=== PATIENT | male | born 1955 | race Two or more races ===

== ENCOUNTER 2019-05-13 08:29 | Inpatient (IN) | payer OTHER ==
[~2019-05-13] VITALS: Ht 167.6 cm; Wt 81.6 kg
[2019-05-13] MEDS ORDERED: GLIPIZIDE XL5 MG PO (09:01)
[2019-06-01] MEDS ORDERED: ACIDOPHILUS X-1 EACH PO (11:06)
[2019-06-01] MEDS ORDERED: AMOX1TAB5 PO (11:06)
== END 2019-06-01 13:39 | disposition home or self-care (01) | DRG 338 ==
LOC: ER 08:29 → SEC-K 18:06 → SURH 18:06 → O/R 20:37 → SURH 21:07 → SURG 05-20 20:34 → SURH 05-20 20:37 → SURG 05-21 11:53
PROVIDERS: ADMIT Surgery
PROC: 0WQF4ZZ Repair Abdominal Wall, Percutaneous Endoscopic Approach (ICD-10-PCS; 2019-05-13)
PROC: 4A033R1 Measurement of Arterial Saturation, Peripheral, Percutaneous Approach (ICD-10-PCS; 2019-05-13)
PROC: BW21Y0Z Computerized Tomography (CT Scan) of Abdomen and Pelvis using Other Contrast, Unenhanced and Enhanced (ICD-10-PCS; 2019-05-13)
PROC: 0DTJ4ZZ Resection of Appendix, Percutaneous Endoscopic Approach (ICD-10-PCS; principal; 2019-05-13 18:00)
PROC: BW4GZZZ Ultrasonography of Pelvic Region (ICD-10-PCS; 2019-05-16)
PROC: 0T9B70Z Drainage of Bladder with Drainage Device, Via Natural or Artificial Opening (ICD-10-PCS; 2019-05-16)
PROC: 4A12X4Z Monitoring of Cardiac Electrical Activity, External Approach (ICD-10-PCS; 2019-05-16)
PROC: BT43ZZZ Ultrasonography of Bilateral Kidneys (ICD-10-PCS; 2019-05-17)
PROC: 3E0F7GC Introduction of Other Therapeutic Substance into Respiratory Tract, Via Natural or Artificial Opening (ICD-10-PCS; 2019-05-18)
PROC: BB24ZZZ Computerized Tomography (CT Scan) of Bilateral Lungs (ICD-10-PCS; 2019-05-19)
PROC: B246ZZZ Ultrasonography of Right and Left Heart (ICD-10-PCS; 2019-05-20)
PROC: 30233N1 Transfusion of Nonautologous Red Blood Cells into Peripheral Vein, Percutaneous Approach (ICD-10-PCS; 2019-05-21)
PROC: B54DZZZ Ultrasonography of Bilateral Lower Extremity Veins (ICD-10-PCS; 2019-05-26)
PROC: BW40ZZZ Ultrasonography of Abdomen (ICD-10-PCS; 2019-05-26)
DX: K35.32 Acute appendicitis with perforation, localized peritonitis, and gangrene, without abscess (principal); J69.0 Pneumonitis due to inhalation of food and vomit; I50.43 Acute on chronic combined systolic (congestive) and diastolic (congestive) heart failure; K42.0 Umbilical hernia with obstruction, without gangrene; N17.8 Other acute kidney failure; N13.8 Other obstructive and reflux uropathy; T17.898A Other foreign object in other parts of respiratory tract causing other injury, initial encounter; T81.41XA Infection following a procedure, superficial incisional surgical site, initial encounter; L03.311 Cellulitis of abdominal wall; J90 Pleural effusion, not elsewhere classified; I13.0 Hypertensive heart and chronic kidney disease with heart failure and stage 1 through stage 4 chronic kidney disease, or unspecified chronic kidney disease; J95.89 Other postprocedural complications and disorders of respiratory system, not elsewhere classified; J98.11 Atelectasis; N13.1 Hydronephrosis with ureteral stricture, not elsewhere classified; D62 Acute posthemorrhagic anemia; K91.31 Postprocedural partial intestinal obstruction; I08.0 Rheumatic disorders of both mitral and aortic valves; I87.2 Venous insufficiency (chronic) (peripheral); N40.1 Benign prostatic hyperplasia with lower urinary tract symptoms; R33.8 Other retention of urine; R31.0 Gross hematuria; E11.22 Type 2 diabetes mellitus with diabetic chronic kidney disease; E11.65 Type 2 diabetes mellitus with hyperglycemia; N18.2 Chronic kidney disease, stage 2 (mild); Z79.4 Long term (current) use of insulin

== ENCOUNTER 2020-10-02 15:36 | Outpatient (CLI) | payer OTHER ==
[~2020-10-02 15:36] MED LIST: ACIDOPHILUS X-1 EACH PO; AMOX1TAB5 PO; GLIPIZIDE XL5 MG PO
== END 2020-10-02 15:41 | disposition home or self-care (01) ==
LOC: RAD 15:36
PROVIDERS: ATTEND Internal Medicine Endocrinology, Diabetes & Metabolism
DX: M06.1 Adult-onset Still's disease (principal); M04.1 Periodic fever syndromes; I11.0 Hypertensive heart disease with heart failure; N18.2 Chronic kidney disease, stage 2 (mild); E11.65 Type 2 diabetes mellitus with hyperglycemia; N16 Renal tubulo-interstitial disorders in diseases classified elsewhere; E11.22 Type 2 diabetes mellitus with diabetic chronic kidney disease

== ENCOUNTER → 2020-10-12 | Outpatient (CLI) | payer OTHER ==
[~2020-10-12] MED LIST changes: +AVAPRO300 MG PO; +CLOTRIMAZOLE-BE15 G1 TP; +FENOFIBRIC ACID35 MG; +FOLIC ACID20 MG PO; +FORTAMET500 MG PO; +GRALISE600 MG PO; +INTESTINEX680 M1 PO; +LIPITOR40 M1; +PRILOSEC OTC20 MG PO; +SYNTHROID50 MCG PO; +VITAMIN B-121000 MC4 PO; +ZYLOPRIM300 MG PO
== END | disposition home or self-care (01) ==
LOC: MAMO-SONO 10:00
PROVIDERS: ATTEND Internal Medicine Endocrinology, Diabetes & Metabolism
DX: N64.4 Mastodynia (principal); I11.0 Hypertensive heart disease with heart failure; E78.2 Mixed hyperlipidemia

== ENCOUNTER 2020-10-31 14:43 | Outpatient (CLI) | payer OTHER ==
[~2020-10-31 14:43] MED LIST changes: -AVAPRO300 MG PO; -CLOTRIMAZOLE-BE15 G1 TP; -FENOFIBRIC ACID35 MG; -FOLIC ACID20 MG PO; -FORTAMET500 MG PO; -GRALISE600 MG PO; -INTESTINEX680 M1 PO; -LIPITOR40 M1; -PRILOSEC OTC20 MG PO; -SYNTHROID50 MCG PO; -VITAMIN B-121000 MC4 PO; -ZYLOPRIM300 MG PO
== END 2020-10-31 14:53 | disposition home or self-care (01) ==
LOC: SONOGRAMA 14:43
PROVIDERS: ATTEND Specialist/Technologist, Other Nephrology
DX: R10.84 Generalized abdominal pain (principal); R31.29 Other microscopic hematuria

== ENCOUNTER 2020-11-07 07:27 | Inpatient (IN) | payer OTHER ==
[~2020-11-07] VITALS: Ht 167.6 cm; Wt 81.6 kg
[2020-11-07] MEDS ORDERED: FENOFIBRIC ACID35 MG (07:44)
[2020-11-07] MEDS ORDERED: GRALISE600 MG PO (07:44)
[2020-11-07] MEDS ORDERED: CLOTRIMAZOLE-BE15 G1 TP (07:45)
[2020-11-07] MEDS ORDERED: LIPITOR40 M1 (07:45)
[2020-11-07] MEDS ORDERED: VITAMIN B-121000 MC4 PO (07:46)
[2020-11-07] MEDS ORDERED: FOLIC ACID20 MG PO (07:46)
[2020-11-07] MEDS ORDERED: AVAPRO300 MG PO (07:47)
[2020-11-07] MEDS ORDERED: FORTAMET500 MG PO (07:47)
[2020-11-07] MEDS ORDERED: ZYLOPRIM300 MG PO (07:47)
[2020-11-07] MEDS ORDERED: SYNTHROID50 MCG PO (07:48)
--- NOTE | 2020-11-07 07:51 | NUR ---
SE RECIBE PTE. ALERTA Y ORIENTADO EN MEÑO DI ESFERAS. PTE. REFIERE TENER DOLOR ABDOMINAL HACE [place].
--- NOTE | 2020-11-07 09:07 | NUR ---
PACIENTE EVALUADO POR DRA. [facility]. MS ROSALES LE ORIENTA SOBRE TRATAMIENTO A SEGUIR. LE EXTRAE MUESTRAS Y CANALIZA VENA, UTILIZANDO MEDIDAS ASEPTICAS. LE ADMINISTRA MEDICAMENTOS LEONORA ORDEN MEDICA, NO PRESENTA REACCIO ADVERSA AL MOMENTO. SE MANTIENE BAJO OBSERVACION POR CAMBIOS.
[2020-11-21] MEDS ORDERED: INTESTINEX680 M1 PO (10:21)
[2020-11-21] MEDS ORDERED: PRILOSEC OTC20 MG PO (10:21)
[2020-11-21] MEDS ORDERED: AMOX1TAB5 PO (10:21)
== END 2020-11-21 10:48 | disposition home or self-care (01) | DRG 394 ==
LOC: ER 07:27 → SEC-K 15:02 → SURH 11-09 17:12 → SEC-K 11-09 20:01 → SURH 11-09 20:02
PROVIDERS: ADMIT Surgery; ATTEND Surgery
PROC: 02HV33Z Insertion of Infusion Device into Superior Vena Cava, Percutaneous Approach (ICD-10-PCS; 2020-11-09)
PROC: BW2110Z Computerized Tomography (CT Scan) of Abdomen and Pelvis using Low Osmolar Contrast, Unenhanced and Enhanced (ICD-10-PCS; 2020-11-14)
PROC: B54PZZZ Ultrasonography of Bilateral Upper Extremity Veins (ICD-10-PCS; 2020-11-14)
PROC: 30233N1 Transfusion of Nonautologous Red Blood Cells into Peripheral Vein, Percutaneous Approach (ICD-10-PCS; principal; 2020-11-19)
PROC: BW2110Z Computerized Tomography (CT Scan) of Abdomen and Pelvis using Low Osmolar Contrast, Unenhanced and Enhanced (ICD-10-PCS; 2020-11-19)
DX: K35.80 Unspecified acute appendicitis (principal); N17.9 Acute kidney failure, unspecified; M10.9 Gout, unspecified; D63.1 Anemia in chronic kidney disease; D53.9 Nutritional anemia, unspecified; K52.9 Noninfective gastroenteritis and colitis, unspecified; I12.9 Hypertensive chronic kidney disease with stage 1 through stage 4 chronic kidney disease, or unspecified chronic kidney disease; E11.22 Type 2 diabetes mellitus with diabetic chronic kidney disease; N18.30 Chronic kidney disease, stage 3 unspecified; E11.40 Type 2 diabetes mellitus with diabetic neuropathy, unspecified; E78.5 Hyperlipidemia, unspecified; Z79.84 Long term (current) use of oral hypoglycemic drugs; Z20.822 Contact with and (suspected) exposure to COVID-19

== ENCOUNTER 2022-03-15 08:35 | Outpatient (CLI) | payer OTHER ==
[~2022-03-15 08:35] MED LIST changes: +AVAPRO300 MG PO; +CLOTRIMAZOLE-BE15 G1 TP; +FENOFIBRIC ACID35 MG; +FOLIC ACID20 MG PO; +FORTAMET500 MG PO; +GRALISE600 MG PO; +INTESTINEX680 M1 PO; +LIPITOR40 M1; +PRILOSEC OTC20 MG PO; +SYNTHROID50 MCG PO; +VITAMIN B-121000 MC4 PO; +ZYLOPRIM300 MG PO
== END 2022-03-15 15:29 | disposition home or self-care (01) ==
LOC: TOM 08:35
PROVIDERS: ATTEND Internal Medicine Endocrinology, Diabetes & Metabolism
DX: R10.9 Unspecified abdominal pain (principal); D50.1 Sideropenic dysphagia; R53.1 Weakness

== ENCOUNTER 2023-07-16 11:47 | Emergency (ER) | payer OTHER ==
[~2023-07-16] VITALS: Ht 167.6 cm; Wt 78.9 kg
[2023-07-16] MEDS ORDERED: TIROSINT50 MCG PO (12:52)
[2023-07-16] MEDS ORDERED: LIPITOR40 M1 PO (12:53)
[2023-07-16] MEDS ORDERED: ZYLOPRIM100 M1 PO (12:53)
[2023-07-16] MEDS ORDERED: FARXIGA5 MG PO (12:54)
[2023-07-16] MEDS ORDERED: GLIPIZIDE-METF1 EAC2 PO (12:56)
[2023-07-16] MEDS ORDERED: GLIPIZIDE ER10 MG PO (12:58)
[2023-07-16] MEDS ORDERED: BUDESONIDE 0.5 MG/2 ML AMPUL.NEB IH STA (15:28)
[2023-07-16] MEDS ORDERED: GUAIFENESIN 200 MG/10 ML BLIST.PACK PO STA (15:28)
[2023-07-16] MEDS ORDERED: IPRATROPIUM BROMIDE 0.5 MG/2.5 ML AMPUL.NEB IH SCH (15:30)
[2023-07-16 16:06] LABS: HEMATOCRIT 28.1 % (39.0-48.0); HEMOGLOBIN 9.6 g/dL (13-16.00); MEAN CELL VOLUME 96.1 fL (80.0-100.00); MEAN CORPUSCULAR HGB CONC 34.3 g/dl (32.0-36.0); PLATELET COUNT 310 K/uL (150-450); RED BLOOD COUNT 2.92 M/uL (4.00-6.00); RED CELL DISTRIBUTION WIDTH 13.5 % (11.5-14.5)
[2023-07-16 16:28] LABS: CALCIUM 8.7 mg/dL (8.5-10.1); CREATININE SERUM 2.78 mg/dL (0.70-1.30); GFR 22.83; POTASSIUM 4.72 mEq/L (3.5-5.1)
[2023-07-16] MEDS ORDERED: ALBUTEROL2.5 MG/3 M IH (18:11)
== END 2023-07-16 18:34 | disposition home or self-care (01) ==
LOC: ER 11:47
PROVIDERS: General Practice
DX: R05.9 Cough, unspecified (principal); N28.9 Disorder of kidney and ureter, unspecified; E11.9 Type 2 diabetes mellitus without complications; Z79.84 Long term (current) use of oral hypoglycemic drugs; Z20.822 Contact with and (suspected) exposure to COVID-19

== ENCOUNTER 2023-12-05 07:30 | Outpatient (CLI) | payer OTHER ==
[~2023-12-05 07:30] MED LIST changes: +ALBUTEROL2.5 MG/3 M IH; +FARXIGA5 MG PO; +GLIPIZIDE ER10 MG PO; +GLIPIZIDE-METF1 EAC2 PO; +LIPITOR40 M1 PO; +TIROSINT50 MCG PO; +ZYLOPRIM100 M1 PO
== END 2023-12-05 07:35 | disposition home or self-care (01) ==
LOC: NUCLEAR 07:30
PROVIDERS: ATTEND Internal Medicine
DX: I35.0 Nonrheumatic aortic (valve) stenosis (principal); I35.1 Nonrheumatic aortic (valve) insufficiency

== ENCOUNTER 2023-12-23 08:06 | Outpatient (CLI) | payer OTHER | END 2023-12-23 08:28 | disposition home or self-care (01) | LOC: SONOGRAMA 08:06 | PROVIDERS: ATTEND Internal Medicine Nephrology | DX: N18.4 Chronic kidney disease, stage 4 (severe) (principal); I10 Essential (primary) hypertension; E11.22 Type 2 diabetes mellitus with diabetic chronic kidney disease; R10.9 Unspecified abdominal pain ==

== ENCOUNTER 2024-01-19 18:28 | Emergency (ER) | payer OTHER ==
[~2024-01-19] VITALS: Ht 152.4 cm; Wt 78.9 kg
[2024-01-19] MEDS ORDERED: CEFTRIAXONE SODIUM 1,000 MG VIAL IV STA (19:38)
[2024-01-19] MEDS ORDERED: BUDESONIDE 0.5 MG/2 ML AMPUL.NEB IH STA (19:39)
[2024-01-19] MEDS ORDERED: GUAIFENESIN 200 MG/10 ML BLIST.PACK PO STA (19:39)
[2024-01-19] MEDS ORDERED: IPRATROPIUM BROMIDE 0.5 MG/2.5 ML AMPUL.NEB IH SCH (19:45)
[2024-01-19] MEDS ORDERED: LEVALBUTEROL HCL 1.25 MG/3 ML SOLUTION IH SCH (19:45)
[2024-01-19 21:56] LABS: HEMATOCRIT 25.7 % (39.0-48.0); MEAN CELL VOLUME 95.6 fL (80.0-100.00); MEAN CORPUSCULAR HGB CONC 34.5 g/dl (32.0-36.0); PLATELET COUNT 271 K/uL (150-450); RED BLOOD COUNT 2.69 M/uL (4.00-6.00); RED CELL DISTRIBUTION WIDTH 14.7 % (11.5-14.5)
[2024-01-19 21:57] LABS: HEMOGLOBIN 8.9 g/dL (13-16.00)
== END 2024-01-19 22:27 | disposition home or self-care (01) ==
LOC: ER 18:28
PROVIDERS: General Practice
DX: J10.1 Influenza due to other identified influenza virus with other respiratory manifestations (principal)

== ENCOUNTER 2024-07-06 12:19 | Emergency (ER) | payer OTHER ==
[~2024-07-06] VITALS: Ht 172.7 cm; Wt 78.9 kg
[2024-07-06] MEDS ORDERED: COZAAR100 MG (12:56)
[2024-07-06] MEDS ORDERED: KETOROLAC TROMETHAMINE 60 MG VIAL IM STA (15:22)
[2024-07-06] MEDS ORDERED: GILTUSS HONEY118 ML PO (18:37)
[2024-07-06] MEDS ORDERED: ACETAMINOPHEN500 M1 PO (18:37)
== END 2024-07-06 18:53 | disposition home or self-care (01) ==
LOC: ER 12:19
DX: J10.1 Influenza due to other identified influenza virus with other respiratory manifestations (principal); I10 Essential (primary) hypertension; E11.9 Type 2 diabetes mellitus without complications; Z79.84 Long term (current) use of oral hypoglycemic drugs; Z20.822 Contact with and (suspected) exposure to COVID-19